=== PATIENT | male | born 1990 | race Caucasian/White ===

== ENCOUNTER 2020-05-08 20:13 | Emergency (ER) | payer OTHER ==
[~2020-05-08] VITALS: Ht 175.3 cm; Wt 74.8 kg
[~2020-05-08 20:13] MED LIST: Bactrim Ds Tab1 EACH PO; FAMO40 PO; PRED10 PO
== END 2020-05-08 23:27 | disposition left against medical advice (07) ==
LOC: ER 20:13
DX: Z53.21 Procedure and treatment not carried out due to patient leaving prior to being seen by health care provider (principal)